=== PATIENT | female | born 1960 | race Caucasian/White ===

== ENCOUNTER 2016-11-28 21:35 | Emergency (ER) | payer SELFPAY ==
[~2016-11-28] VITALS: Ht 167.6 cm; Wt 77.1 kg
[2016-11-28 21:47] VITALS: BP 109/65
--- NOTE | 2016-11-28 22:50 | NUR ---
PATIENT LEFT WITHOUT BEING SEEN BY DR. Mtz. NO FURTHER CARE PROVIDED FOR PATIENT.
== END 2016-11-28 22:50 | disposition left against medical advice (07) ==
LOC: MED 21:35
DX: R52 Pain, unspecified (principal); R19.7 Diarrhea, unspecified; R11.10 Vomiting, unspecified; Z53.21 Procedure and treatment not carried out due to patient leaving prior to being seen by health care provider

== ENCOUNTER 2016-11-30 05:59 | Emergency (ER) | payer OTHER ==
[~2016-11-30] VITALS: Ht 167.6 cm; Wt 77.1 kg
[2016-11-30 06:03] VITALS: BP 121/67
[2016-11-30 06:44] LABS: BASOPHILS # (AUTO) 0.1 K/uL (0.00-0.22); EOSINOPHILS # (AUTO) 0.4 K/uL (0-0.4); EOSINOPHILS % (AUTO) 3.5 % (0.0-4.0); HEMATOCRIT 44.5 % (36-48); HEMOGLOBIN 14.3 g/dL (12.0-16.0); LYMPHOCYTES # (AUTO) 2.1 K/uL (2.5-16.5); LYMPHOCYTES % (AUTO) 18.8 % (20.5-51.1); MEAN CORPUSCULAR HEMOGLOBIN 28 pg (27-31); MEAN CORPUSCULAR HGB CONC 32 g/dL (33-37); MEAN CORPUSCULAR VOLUME 88 fL (80-94); MONOCYTES # (AUTO) 0.8 K/uL (0.8-1.0); MONOCYTES % (AUTO) 7.6 % (1.7-9.3); NEUTROPHILS # (AUTO) 7.7 K/uL (1.8-7.7); NEUTROPHILS % (AUTO) 69.1 % (42.2-75.2); PLATELET COUNT (AUTO) 222 K/uL (140-450); RED BLOOD CELL COUNT(AUTO) 5.07 MIL/uL (4.20-5.40); RED CELL DISTRIBUTION WIDTH 12.3 % (11.6-13.7); WHITE BLOOD COUNT (AUTO) 11.1 K/uL (4.8-10.8)
[2016-11-30 06:46] LABS: APPEARANCE,URINE SL CLOUDY (CLEAR); BILIRUBIN,URINE 1+ (NEGATIVE); COLOR,URINE YELLOW (YELLOW); LEUKOCYTE ESTERASE ,URINE TRACE (NEGATIVE); PROTEIN,URINE NEGATIVE (NEGATIVE); UGLUCOSE NEGATIVE (NEGATIVE); UROBILINOGEN,URINE 0.2 EU/dL (0.2 - 1)
[2016-11-30 06:56] LABS: BLOOD, URINE 1+ (NEGATIVE); NITRITE, URINE POSITIVE (NEGATIVE)
[2016-11-30 06:57] LABS: BACTERIA,URINE 1+ /HPF (None Seen); SQUAMOUS EPITHELIAL CELL,UR 0-3 (FEW) /LPF (0-3 (FEW)); WBC,URINE 0-5 (RARE) /HPF (0-5)
[2016-11-30 06:58] LABS: CALCIUM OXALATE CRYSTALS,UR 0-10 /HPF (None Seen); ICTOTEST NEGATIVE (NEGATIVE)
[2016-11-30 07:00] LABS: ALBUMIN 3.5 g/dL (3.4-5.0); ANION GAP 9.9 (8-16); CALCIUM 8.8 mg/dL (8.5-10.1); CREATININE 0.9 mg/dL (0.6-1.3); POTASSIUM 3.9 mmol/L (3.5-5.1); TOTAL BILIRUBIN 0.8 mg/dL (0.0-1.0); TOTAL PROTEIN, SERUM 7.4 g/dL (6.4-8.2)
--- NOTE | 2016-11-30 07:04 | NUR ---
PATIENT PRESENTS TO ED WITH C/O RT EYE, NECK AND EAR PAIN . PT STATES SHE HAS BEEN NAUSEOUS AND HAD DIARRHEA . SKIN IS PINK/WARM/DRY; AAOX4 WITH EVEN AND STEADY GAIT; LUNGS CLEAR BL; HR EVEN AND REGULAR; PT DENIES ANY FEVER, CP, SOB, OR COUGH AT THIS TIME; PATIENT STATES PAIN OF 8/10 AT THIS TIME; VSS; PATIENT POSITIONED FOR COMFORT; HOB ELEVATED; BEDRAILS UP X2; BED DOWN. ER MD MADE AWARE OF PT STATUS. RL AT BEDSIDE AT THIS TIME
[2016-11-30 07:10] LABS: PROTHROMBIN TIME 9.7 secs (10.8-13.4)
--- NOTE | 2016-11-30 07:14 | NUR ---
Pt report given to LEANDRA MERINO. Transfer of care at this time.
--- NOTE | 2016-11-30 07:25 | NUR ---
Patient appears to be resting comfortably in bed. Vital Signs within normal limits. Respirations even and unlabored.
--- NOTE | 2016-11-30 08:18 | NUR ---
Dr. Pinon at bedside.
[2016-11-30] MEDS ORDERED: diphenhydrAMINE 50 MG/ML VIAL IVP ONE ×2 (08:20→09:10)
[2016-11-30] MEDS ORDERED: NACL 0.9% 1,000 ML IV ONE (08:20)
[2016-11-30] MEDS ORDERED: PROCHLORPERAZINE 10 MG/2 ML VIAL IVP ONE (08:20)
[2016-11-30] MEDS ORDERED: SUMAtriptan 6 MG/0.5 ML VIAL SUBQ ONE (08:20)
--- NOTE | 2016-11-30 08:50 | NUR ---
Pt is c/o anxiety and is restless at this time. Vitals are stable. Dr. Kerns at bedside.
--- NOTE | 2016-11-30 09:05 | NUR ---
Patient is now lying right side lateral. Patient is now calm and relaxed. No longer restless. Pt verbalizes feeling better. IV fluids infusing. Pt tolerating well.
--- NOTE | 2016-11-30 09:44 | NUR ---
IV removed, catheter intact and site benign. Applied folded 4x4 gauze and tape to stop bleeding.
[2016-11-30 09:52] VITALS: BP 121/72
--- NOTE | 2016-11-30 09:52 | NUR ---
Patient discharged with v/s stable. Written and verbal after care instructions given and explained. Patient alert, oriented and verbalized understanding of instructions. Ambulatory with steady gait. All questions addressed prior to discharge. ID band removed. Patient advised to follow up with PMD. Rx of IMITREX given. Patient educated on indication of medication including possible reaction and side effects. Opportunity to ask questions provided and answered.
== END 2016-11-30 09:52 | disposition home or self-care (01) ==
LOC: MED 05:59
DX: G43.809 Other migraine, not intractable, without status migrainosus (principal); R10.13 Epigastric pain; H53.141 Visual discomfort, right eye
CPT/HCPCS: 36415; 70450; 71010; 80053; 81001; 81025; 83690; 84484; 85025; 85610; 85651; 85730; 86140; 87086; 93005; 96361; 96372; 96374; 96375; 99285; J0780; J1200; J3030; J7030; Q0092

== ENCOUNTER 2021-12-19 20:27 | Emergency (ER) | payer OTHER ==
[~2021-12-19] VITALS: Ht 162.6 cm; Wt 79.9 kg
[2021-12-19 21:01] VITALS: BP 132/69
--- NOTE | 2021-12-19 21:08 | NUR ---
PT TAKEN TO BED 05.
--- NOTE | 2021-12-19 21:25 | NUR ---
DR. DAVILA AT BEDSIDE FOR EVALUATION
--- NOTE | 2021-12-19 21:26 | NUR ---
ER AT BEDSIDE
--- NOTE | 2021-12-19 21:39 | NUR ---
PT TAKEN TO XRAY
--- NOTE | 2021-12-19 21:51 | NUR ---
RESP. PANEL SWAB COLECTED AND WALKED TO LAB
[2021-12-19] MEDS ORDERED: TESSALON PERLES PO (21:59)
--- NOTE | 2021-12-19 22:14 | NUR ---
Patient discharged with v/s stable. Written and verbal after care instructions given and explained. Patient verbalized understanding. Ambulatory with steady gait. All questions addressed prior to discharge. Advised to follow up with PMD.
--- NOTE | 2021-12-19 22:23 | NUR ---
The patient's care was reviewed and supervised by Nicole Rodarte RN.
== END 2021-12-19 22:14 | disposition home or self-care (01) ==
LOC: MED 20:27
DX: B34.9 Viral infection, unspecified (principal); Z20.822 Contact with and (suspected) exposure to COVID-19; Z11.3 Encounter for screening for infections with a predominantly sexual mode of transmission
CPT/HCPCS: 71046; 87635; 99284; C9803

== ENCOUNTER 2021-12-24 16:12 | Emergency (ER) | payer OTHER ==
[~2021-12-24] VITALS: Ht 162.6 cm; Wt 77.7 kg
[~2021-12-24 16:12] MED LIST: TESSALON PERLES PO
[2021-12-24 16:18] VITALS: BP 116/72
--- NOTE | 2021-12-24 16:27 | NUR ---
PT AMB TO BED 4.
[2021-12-24 17:23] LABS: BASOPHILS % (AUTO) 0.4 % (0.0-2.0); EOSINOPHILS # (AUTO) 0.2 K/uL (0-0.4); EOSINOPHILS % (AUTO) 1.8 % (0.0-4.0); HEMATOCRIT 46.1 % (36-48); HEMOGLOBIN 15.3 g/dL (12.0-16.0); LYMPHOCYTES # (AUTO) 1.3 K/uL (2.5-16.5); LYMPHOCYTES % (AUTO) 14.1 % (20.5-51.1); MEAN CORPUSCULAR HEMOGLOBIN 29 pg (27-31); MEAN CORPUSCULAR HGB CONC 33 g/dL (33-37); MEAN CORPUSCULAR VOLUME 87.1 fL (80-94); MONOCYTES # (AUTO) 0.4 K/uL (0.8-1.0); MONOCYTES % (AUTO) 4.7 % (1.7-9.3); NEUTROPHILS # (AUTO) 7.1 K/uL (1.8-7.7); PLATELET COUNT (AUTO) 249 K/uL (140-450); RED BLOOD CELL COUNT(AUTO) 5.29 MIL/uL (4.20-5.40); RED CELL DISTRIBUTION WIDTH 13.3 % (11.6-13.7); WHITE BLOOD COUNT (AUTO) 8.9 K/uL (4.8-10.8)
[2021-12-24 17:49] LABS: ALBUMIN 3.8 g/dL (3.4-5.0); ANION GAP 14.4 (8-16); CARBON DIOXIDE 24.4 mmol/L (21-32); CREATININE 0.8 mg/dL (0.6-1.3); POTASSIUM 3.8 mmol/L (3.5-5.1); TOTAL BILIRUBIN 1.1 mg/dL (0.0-1.0)
[2021-12-24] MEDS ORDERED: ROB PO (18:11)
--- NOTE | 2021-12-24 18:48 | NUR ---
Patient discharged with v/s stable. Written and verbal after care instructions given and explained. Patient alert, oriented and verbalized understanding of instructions. Ambulatory with steady gait. All questions addressed prior to discharge. ID band removed. Patient advised to follow up with PMD. Rx of guaifenesin (sent) given. Patient educated on indication of medication including possible reaction and side effects. Opportunity to ask questions provided and answered. work note given
--- NOTE | 2021-12-24 18:48 | NUR ---
no nursing interventions done at this time
[2021-12-24 18:49] VITALS: BP 116/72
== END 2021-12-24 18:49 | disposition home or self-care (01) ==
LOC: MED 16:12
DX: B34.9 Viral infection, unspecified (principal); Z20.822 Contact with and (suspected) exposure to COVID-19; Z79.899 Other long term (current) drug therapy
CPT/HCPCS: 36415; 71045; 80053; 83880; 84484; 85025; 87426; 93005; 99285; Q0092